=== PATIENT | male | born 1990 | race Caucasian/White ===

== ENCOUNTER 2024-06-09 07:59 | Emergency (ER) | payer OTHER ==
[~2024-06-09] VITALS: Ht 180.3 cm; Wt 79.5 kg
[2024-06-09] MEDS ORDERED: BREO ELLIPTA1 POW IH (08:07)
[2024-06-09] MEDS ORDERED: Iohexol 300 - 100 ML VIAL IV ONE (08:15)
[2024-06-09] MEDS ORDERED: NS 1,000 ML IV ONE (08:15)
[2024-06-09 08:26] LABS: BASO # 0.05 K/mm3 (0.02-0.10); EOS # 0.09 K/mm3 (0.04-0.40); EOS % 0.7 % (0.0-4.0); HEMATOCRIT 43.3 % (42.0-52.0); HEMOGLOBIN 14.9 g/dL (13.5-18.0); LYMPH# 2.05 K/mm3 (1.50-4.00); MEAN CELL VOLUME 93 fl (78-100); MEAN CORPUSCULAR HEMOGLOBIN 32 pg (27-31); MEAN CORPUSCULAR HGB CONC 34 g/dL (33-37); MEAN PLATELET VOLUME 9.3 fl (7.4-10.4); MONO # 1.29 K/mm3 (0.20-0.80); NEU # 9.21 K/mm3 (1.40-6.50); PLATELET COUNT 299 K/mm3 (130-400); RED BLOOD COUNT 4.64 M/mm3 (4.20-5.60); RED CELL DISTRIBUTION WIDTH 12.4 % (11.5-14.5); WHITE BLOOD COUNT 12.7 K/mm3 (4.8-10.8)
[2024-06-09 08:45] LABS: ALBUMIN 4.1 g/dL (3.5-5.0)
[2024-06-09 08:47] LABS: CALCIUM 10.2 mg/dL (8.3-10.5)
[2024-06-09 08:48] LABS: TOTAL PROTEIN 7.7 g/dL (6.4-8.3)
[2024-06-09 08:50] LABS: TOTAL BILIRUBIN 0.9 mg/dL (0.2-1.2)
[2024-06-09] MEDS ORDERED: CLINDAMYCIN IV ONE (09:45)
[2024-06-09] MEDS ORDERED: NS IV ONE (09:45)
[2024-06-09] MEDS ORDERED: dexAMETHasone 4 MG/ML VIAL IV ONE (09:45)
[2024-06-09] MEDS ORDERED: CLINDAMYCI75 MG/5 M1 PO (09:46)
[2024-06-09] MEDS ORDERED: PREDNISOLO15 MG/5 M5 PO (09:46)
[2024-06-09] MEDS ORDERED: KETOROLAC10 MG PO (10:18)
[2024-06-09 10:26] VITALS: BP 129/74
== END 2024-06-09 10:34 | disposition home or self-care (01) ==
LOC: ED 07:59
PROVIDERS: Family Medicine
DX: J36 Peritonsillar abscess (principal)
CPT/HCPCS: J0736; J1100; J7030; Q9967